=== PATIENT | male | born 2000 | race Hispanic/Latino ===

== ENCOUNTER 2024-09-18 17:30 | Inpatient (IN) | payer MEDICAID, OTHER ==
[~2024-09-18] VITALS: Ht 162.6 cm; Wt 75.7 kg
[2024-09-18 18:13] LABS: BASOPHILS % 0.3 % (0.0-1.0); EOSINOPHILS # (AUTO) 0.2 (0.0-0.4); EOSINOPHILS % 2.5 % (0.0-6.0); HEMATOCRIT 25.2 % (38.2-49.6); LYMPHOCYTES # (AUTO) 1.5 (1.0-3.2); LYMPHOCYTES % 21.4 % (18.0-39.1); MEAN CORPUSCULAR HEMOGLOBIN 30.1 pg (28-32); MEAN CORPUSCULAR HGB CONC 35.7 g/dL (31-35); MEAN CORPUSCULAR VOLUME 84.3 fL (81-99); MONOCYTES # (AUTO) 0.5 (0.2-0.8); MONOCYTES % 6.7 % (4.4-11.3); NEUTROPHILS # (AUTO) 4.7 (2.1-6.9); NEUTROPHILS % 68.8 % (38.7-80.0); PLATELET COUNT 200 x10e3/uL (140-360); RED BLOOD COUNT 2.99 x10e6/uL (4.3-5.7); RED CELL DISTRIBUTION WIDTH 12.4 % (11.7-14.4); WHITE BLOOD COUNT 6.88 x10e3/uL (4.8-10.8)
[2024-09-18 18:24] LABS: INR 1.09; PROTHROMBIN TIME 14.8 seconds (11.9-14.5)
[2024-09-18 18:25] LABS: PARTIAL THROMBOPLASTIN TIME 26.6 seconds (23.8-35.5)
[2024-09-18 18:30] LABS: CORONAVIRUS COVID-19 AG NEGATIVE (NEGATIVE); INFLUENZA A AG NEGATIVE (NEGATIVE); INFLUENZA B AG NEGATIVE (NEGATIVE)
[2024-09-18 18:34] LABS: ALBUMIN 3.8 g/dL (3.5-5.0); ALBUMIN/GLOBULIN RATIO 1.4 (0.8-2.0); ANION GAP 25.4 mmol/L (8-16); BILIRUBIN,TOTAL 0.6 mg/dL (0.2-1.2); CREATININE, SERUM 18.17 mg/dL (0.72-1.25); TOTAL PROTEIN 6.5 g/dL (6.5-8.1)
[2024-09-18 18:37] LABS: POTASSIUM 3.4 mmol/L (3.5-5.1)
[2024-09-18 18:38] LABS: CALCIUM 5.2 mg/dL (8.4-10.2)
[2024-09-18 18:40] LABS: TROPONIN I 0.068 ng/mL (0-0.300)
[2024-09-18] MEDS ORDERED: SODIUM CHLORIDE FLUSH 10 ML SYR INJ PRN (19:15)
[2024-09-18] MEDS ORDERED: ONDANSETRON HCL INJ 2MG/ML 2ML 2 MG/ML VIAL IV PRN (19:15)
[2024-09-18 19:25] LABS: CLARITY,URINE CLEAR (CLEAR); COLOR,URINE YELLOW (YELLOW)
[2024-09-18 19:26] LABS: BILIRUBIN,URINE NEGATIVE (NEGATIVE); GLUCOSE, URINE 1+ (NEGATIVE); KETONES,URINE NEGATIVE (NEGATIVE); LEUKOCYTE ESTERASE ,URINE NEGATIVE (NEGATIVE); NITRITE,URINE NEGATIVE (NEGATIVE); PH,URINE 6.5 (5 - 7); PROTEIN,URINE DIPSTICK >=300 (NEGATIVE); URINE UROBILINOGEN 0.2 mg/dL (0.2 - 1)
[2024-09-18 19:33] LABS: BACTERIA,URINE FEW /HPF; EPITHELIAL CELLS,URINE FEW /LPF; RBC,URINE 0-5 /HPF (0-5); WBC,URINE (MAN) 0-5 /HPF (0-5)
[2024-09-18 19:57] VITALS: TEMP 98.6
[2024-09-18] MEDS: METOPROLOL TARTRATE INJ 1 MG/ML VIAL IV STA (20:02)
[2024-09-18] MEDS: CALCIUM GLUC 1 G/50 ML NACL 50 ML IV ONE (20:02)
[2024-09-18 21:11] VITALS: PULSE 86; RESP 17
[2024-09-18] MEDS ORDERED: METOPROLOL TARTRATE INJ 1 MG/ML VIAL IV PRN (21:30)
[2024-09-18 21:52] VITALS: BP 147/94; PULSE 88; RESP 18; TEMP 98.1; O2SAT 97
[2024-09-18 22:00] VITALS: BP 147/94; PULSE 88; RESP 18; TEMP 98.1; O2SAT 97
[2024-09-18] MEDS ORDERED: LOSARTAN POTAS100 MG PO (23:04)
[2024-09-18] MEDS ORDERED: OMEPRAZOLE40 MG PO (23:04)
[2024-09-18] MEDS ORDERED: PREDNISONE5 MG PO (23:04)
[2024-09-18] MEDS ORDERED: BENLYSTA200 MG/1 M IM (23:04)
[2024-09-18] MEDS ORDERED: PLAQUENIL200 MG PO (23:04)
[2024-09-18] MEDS ORDERED: CARVEDILOL12.5 MG PO (23:04)
[2024-09-18] MEDS ORDERED: MYCOPHENOLATE250 MG PO (23:04)
[2024-09-19] VITALS (7 sets, daily range): BP systolic 126–168; BP diastolic 74–107; PULSE 80–91; RESP 16–19; TEMP 97.9–99; O2SAT 100
[2024-09-19 07:56] LABS: BASOPHILS % 0.5 % (0.0-1.0); EOSINOPHILS # (AUTO) 0.2 (0.0-0.4); EOSINOPHILS % 2.6 % (0.0-6.0); HEMATOCRIT 25.6 % (38.2-49.6); LYMPHOCYTES # (AUTO) 2.3 (1.0-3.2); LYMPHOCYTES % 36.3 % (18.0-39.1); MEAN CORPUSCULAR HEMOGLOBIN 29.8 pg (28-32); MEAN CORPUSCULAR HGB CONC 35.2 g/dL (31-35); MEAN CORPUSCULAR VOLUME 84.8 fL (81-99); MONOCYTES # (AUTO) 0.5 (0.2-0.8); MONOCYTES % 7.6 % (4.4-11.3); NEUTROPHILS # (AUTO) 3.3 (2.1-6.9); NEUTROPHILS % 52.8 % (38.7-80.0); PLATELET COUNT 194 x10e3/uL (140-360); RED BLOOD COUNT 3.02 x10e6/uL (4.3-5.7); RED CELL DISTRIBUTION WIDTH 12.3 % (11.7-14.4)
[2024-09-19 08:07] LABS: CALCIUM IONIZED 0.6 mmol/L (1.09-1.30)
[2024-09-19 08:30] LABS: ALBUMIN 3.5 g/dL (3.5-5.0); ALBUMIN/GLOBULIN RATIO 1.5 (0.8-2.0); ANION GAP 23.2 mmol/L (8-16); BILIRUBIN,TOTAL 0.6 mg/dL (0.2-1.2); CREATININE, SERUM 18.32 mg/dL (0.72-1.25); TOTAL PROTEIN 5.8 g/dL (6.5-8.1)
[2024-09-19 08:31] LABS: MAGNESIUM 1.7 MG/DL (1.3-2.1)
[2024-09-19 08:33] LABS: POTASSIUM 3.2 mmol/L (3.5-5.1)
[2024-09-19 08:36] LABS: CALCIUM 5.2 mg/dL (8.4-10.2)
[2024-09-19] MEDS: CALCIUM GLUC 1 G/50 ML NACL 50 ML IV SCH (10:42)
[2024-09-19] MEDS ORDERED: HEPARIN SOD (PORCINE) 1000 UNIT/ML SDV ONE (12:06)
[2024-09-19] MEDS ORDERED: MIDAZOLAM HCL 2 MG/2 ML VIAL ONE (12:06)
[2024-09-19] MEDS ORDERED: FENTANYL CITRATE/PF 100MCG/2 ML INJ ONE (12:07)
[2024-09-19] MEDS ORDERED: SODIUM CHLORIDE 0.9% 250ML 250 ML ONE (12:07)
[2024-09-19] MEDS ORDERED: LIDOCAINE HCL 1% 30ML-PF VIAL ONE (13:23)
[2024-09-19] MEDS ORDERED: SODIUM CHLORIDE 0.9% 500ML 500 ML ONE (13:23)
[2024-09-19] MEDS: MAGNESIUM SULFATE 2GM/50ML 50 ML IV ONE (14:02)
[2024-09-19] MEDS: SODIUM BICARBONATE 650 MG TAB PO SCH (14:02)
[2024-09-19] MEDS: CALCIUM CARBONATE 500 MG CHEWABLE TABS PO SCH (14:02)
[2024-09-19] MEDS ORDERED: HEPARIN SOD (PORCINE) 1000 UNIT/ML SDV IV PRN (17:15)
[2024-09-19] MEDS ORDERED: SODIUM CHLORIDE 0.9% 1000ML 1,000 ML IV PRN (17:15)
[2024-09-19] MEDS ORDERED: MANNITOL 25% 12.5GM/50 ML VIAL IV PRN (17:15)
[2024-09-19] MEDS: HYDRALAZINE HCL 20 MG/ML VIAL IV PRN (19:22)
[2024-09-19] MEDS: ACETAMINOPHEN 325 MG TAB PO PRN (19:24)
[2024-09-19] MEDS: CARVEDILOL 12.5 MG TAB PO SCH (21:41)
[2024-09-20] VITALS (10 sets, daily range): BP systolic 146–182; BP diastolic 93–122; PULSE 83–107; RESP 16–18; TEMP 98.2–99; O2SAT 98–100
[2024-09-20 05:35] LABS: HEPATITIS B CORE AB TOTAL NEGATIVE; HEPATITIS B SURFACE AB QUANT <3.5; HEPATITIS B SURFACE AG (P) NEGATIVE
[2024-09-20 06:30] LABS: ALBUMIN 3.5 g/dL (3.5-5.0); ALBUMIN/GLOBULIN RATIO 1.5 (0.8-2.0); ANION GAP 20.3 mmol/L (8-16); BILIRUBIN,TOTAL 0.6 mg/dL (0.2-1.2); CREATININE, SERUM 13.16 mg/dL (0.72-1.25); TOTAL PROTEIN 5.9 g/dL (6.5-8.1)
[2024-09-20 06:36] LABS: POTASSIUM 3.3 mmol/L (3.5-5.1)
[2024-09-20 06:38] LABS: CALCIUM 6.7 mg/dL (8.4-10.2)
[2024-09-20] MEDS: CALCITRIOL 0.25 MCG CAP PO SCH (08:43)
[2024-09-20] MEDS ORDERED: HEPARIN SOD (PORCINE) 1000 UNIT/ML SDV IV PRN (13:00)
[2024-09-20] MEDS ORDERED: SODIUM CHLORIDE 0.9% 1000ML 2,000 ML IV PRN (13:00)
[2024-09-20] MEDS ORDERED: MANNITOL 25% 12.5GM/50 ML VIAL IV PRN (13:00)
[2024-09-20] MEDS: AMLODIPINE BESYLATE 10 MG TAB PO SCH (13:59)
[2024-09-20] MEDS: CARVEDILOL 12.5 MG TAB PO SCH (17:50)
[2024-09-21 00:29] VITALS: BP 140/76; PULSE 105; RESP 17; TEMP 98.6; O2SAT 100
[2024-09-21 04:00] VITALS: BP 154/95; PULSE 100; RESP 20; TEMP 98.3; O2SAT 100
[2024-09-21] MEDS: PANTOPRAZOLE SODIUM 20 MG TABLET.DR PO SCH (08:51)
[2024-09-21] MEDS: HYDROXYCHLOROQUINE SULFATE 200 MG TAB PO SCH (08:53)
[2024-09-21 09:03] VITALS: BP 157/98; PULSE 93; RESP 20; TEMP 98.3; O2SAT 98
[2024-09-21 12:17] VITALS: BP_SYST 130; BP_SYST 157; BP_DIAS 83; BP_DIAS 98; PULSE 93; PULSE 95; RESP 20; TEMP 98.3; O2SAT 98; O2SAT 99
[2024-09-21 17:44] VITALS: BP 152/101; PULSE 107; RESP 20; TEMP 98.8; O2SAT 100
[2024-09-21 20:00] VITALS: BP_SYST 130; BP_SYST 141; BP_DIAS 77; PULSE 89; PULSE 95; RESP 18; TEMP 98.2; TEMP 98.4; O2SAT 99
[2024-09-22 00:15] VITALS: BP 145/78; PULSE 96; RESP 1; TEMP 98.5; O2SAT 99
[2024-09-22 04:12] VITALS: BP 137/90; PULSE 93; RESP 18; TEMP 98.2; O2SAT 98
[2024-09-22 04:50] LABS: BASOPHILS % 0.2 % (0.0-1.0); EOSINOPHILS # (AUTO) 0.2 (0.0-0.4); EOSINOPHILS % 3.8 % (0.0-6.0); HEMATOCRIT 24.4 % (38.2-49.6); HEMOGLOBIN 8.2 g/dL (14.0-18.0); LYMPHOCYTES # (AUTO) 2.2 (1.0-3.2); LYMPHOCYTES % 40.8 % (18.0-39.1); MEAN CORPUSCULAR HEMOGLOBIN 29.4 pg (28-32); MEAN CORPUSCULAR HGB CONC 33.6 g/dL (31-35); MEAN CORPUSCULAR VOLUME 87.5 fL (81-99); MONOCYTES # (AUTO) 0.5 (0.2-0.8); MONOCYTES % 8.8 % (4.4-11.3); NEUTROPHILS # (AUTO) 2.5 (2.1-6.9); NEUTROPHILS % 46.2 % (38.7-80.0); PLATELET COUNT 183 x10e3/uL (140-360); RED BLOOD COUNT 2.79 x10e6/uL (4.3-5.7); RED CELL DISTRIBUTION WIDTH 12.2 % (11.7-14.4); WHITE BLOOD COUNT 5.32 x10e3/uL (4.8-10.8)
[2024-09-22 05:17] LABS: ANION GAP 20.7 mmol/L (8-16); CALCIUM 7.1 mg/dL (8.4-10.2); CREATININE, SERUM 11.41 mg/dL (0.72-1.25); POTASSIUM 3.7 mmol/L (3.5-5.1)
[2024-09-22 06:25] LABS: ABG HCO3 20 mmol/L (22-26); ABG PCO2 38 mmHg (35-45); ABG PH 7.33 (7.35-7.45); ABG PO2 82 mmHg (80-105); ABG TCO2 21
[2024-09-22] MEDS ORDERED: LASIX40 MG PO (08:21)
[2024-09-22] MEDS ORDERED: PREDNISONE10 MG PO (08:24)
[2024-09-22 08:44] VITALS: BP 159/116; PULSE 94; RESP 20; TEMP 98.7; O2SAT 100
[2024-09-22 09:00] VITALS: BP 159/116; PULSE 94; RESP 20; TEMP 98.7; O2SAT 100
[2024-09-22 12:00] VITALS: BP 123/72; PULSE 87; RESP 18; TEMP 98.2; O2SAT 99
[2024-09-22] MEDS: LOSARTAN POTASSIUM 100 MG TAB PO SCH (18:15)
[2024-09-22 20:00] VITALS: BP 130/77; PULSE 89; RESP 18; TEMP 98.2; O2SAT 99
[2024-09-23 00:47] VITALS: BP 125/68; PULSE 90; RESP 16; TEMP 98.8; O2SAT 99
[2024-09-23 04:50] VITALS: BP 140/83; PULSE 92; RESP 16; TEMP 99.3; O2SAT 99
[2024-09-23 05:40] LABS: BASOPHILS % 0.3 % (0.0-1.0); EOSINOPHILS # (AUTO) 0.2 (0.0-0.4); EOSINOPHILS % 4.2 % (0.0-6.0); HEMOGLOBIN 8.4 g/dL (14.0-18.0); LYMPHOCYTES % 33.7 % (18.0-39.1); MEAN CORPUSCULAR HEMOGLOBIN 29.8 pg (28-32); MEAN CORPUSCULAR HGB CONC 33.6 g/dL (31-35); MEAN CORPUSCULAR VOLUME 88.7 fL (81-99); MONOCYTES # (AUTO) 0.5 (0.2-0.8); NEUTROPHILS % 52.6 % (38.7-80.0); PLATELET COUNT 190 x10e3/uL (140-360); RED BLOOD COUNT 2.82 x10e6/uL (4.3-5.7); RED CELL DISTRIBUTION WIDTH 12.2 % (11.7-14.4); WHITE BLOOD COUNT 5.78 x10e3/uL (4.8-10.8)
[2024-09-23 06:04] LABS: CALCIUM 7.8 mg/dL (8.4-10.2); CREATININE, SERUM 8.16 mg/dL (0.72-1.25)
[2024-09-23 07:59] VITALS: BP 144/93; PULSE 87; RESP 18; TEMP 98.7; O2SAT 99
[2024-09-23 08:52] LABS: CALCIUM 4.9 mg/dL (8.7-10.2)
[2024-09-23 11:47] VITALS: BP 123/79; PULSE 94; RESP 19; TEMP 98.7; O2SAT 99
[2024-09-23] MEDS ORDERED: Calcitriol PO (11:52)
[2024-09-23] MEDS ORDERED: NORVASC10 MG PO (11:52)
[2024-09-23] MEDS ORDERED: TUMS200 MG PO (11:53)
[2024-09-23] MEDS ORDERED: SODIUM BICARBO650 MG PO (11:53)
[2024-09-23] MEDS ORDERED: COREG12.5 MG PO (11:53)
[2024-09-23] MEDS ORDERED: COZAAR100 MG PO (11:53)
[2024-10-02] MEDS ORDERED: ULTRAM 50MG50 MG PO (09:58)
== END 2024-09-23 14:40 | disposition home or self-care (01) | DRG 674 ==
LOC: ER 18:14 → ERHOLD 19:05 → MED/SURG 21:37 → OBSVTOIN 09-20 13:34
PROVIDERS: ADMIT Internal Medicine; ATTEND Internal Medicine
PROC: 02H633Z Insertion of Infusion Device into Right Atrium, Percutaneous Approach (ICD-10-PCS; principal; 2024-09-19)
PROC: 5A1D70Z Performance of Urinary Filtration, Intermittent, Less than 6 Hours Per Day (ICD-10-PCS; principal; 2024-09-19)
PROC: 0JH63XZ Insertion of Tunneled Vascular Access Device into Chest Subcutaneous Tissue and Fascia, Percutaneous Approach (ICD-10-PCS; principal; 2024-09-19)
DX: I12.0 Hypertensive chronic kidney disease with stage 5 chronic kidney disease or end stage renal disease (principal); E87.20 Acidosis, unspecified; I16.0 Hypertensive urgency; N18.6 End stage renal disease; D63.1 Anemia in chronic kidney disease; E83.51 Hypocalcemia; Z99.2 Dependence on renal dialysis; E87.6 Hypokalemia; E83.42 Hypomagnesemia; R94.31 Abnormal electrocardiogram [ECG] [EKG]; M32.9 Systemic lupus erythematosus, unspecified; M19.90 Unspecified osteoarthritis, unspecified site; Z11.52 Encounter for screening for COVID-19; Z91.013 Allergy to seafood
CPT/HCPCS: 36415; 36558; 71045; 74470; 76770; 76937; 77001; 80048; 80053; 81001; 82550; 82805; 83519; 83690; 83735; 83880; 83970; 84100; 84484; 85025; 85610; 85730; 86704; 86706; 87340; 93005; 99152; 99284; C1769; C1892; G0378; J0360; J0690; J1644; J2003; J2150; J2250; J3475; J7030; J7040; J7050

== ENCOUNTER → 2024-10-02 | Day surgery (SDC) | payer MEDICAID ==
[~2024-10-02] MED LIST: ACETAMINOPHEN 1000 MG/100 ML 100 ML IV ONE; BENLYSTA200 MG/1 M IM; CARVEDILOL12.5 MG PO; COREG12.5 MG PO; COZAAR100 MG PO; Calcitriol PO; DEXAMETHASONE SOD PHOS INJ 4 MG/ML SDV ONE; FENTANYL CITRATE/PF 100MCG/2 ML INJ ONE; LASIX40 MG PO; LIDOCAINE HCL 2% LOCAL INJ 5 ML SDV VIAL INJ ONE; LOSARTAN POTAS100 MG PO; MIDAZOLAM HCL 2 MG/2 ML VIAL ONE; MYCOPHENOLATE250 MG PO; NORVASC10 MG PO; OMEPRAZOLE40 MG PO; ONDANSETRON HCL INJ 2MG/ML 2ML 2 MG/ML VIAL ONE; PLAQUENIL200 MG PO; PREDNISONE10 MG PO; PREDNISONE5 MG PO; PROPOFOL IV EMULSION 10 MG/ML 20 ML VIAL ONE; ROCURONIUM BROMIDE 1 ML IV ONE; SEVOFLURANE INHAL SOLN 250 ML PEN BTL ONE; SODIUM BICARBO650 MG PO; SUGAMMADEX SODIUM 200 MG/2 ML VIAL IV ONE; TUMS200 MG PO; ULTRAM 50MG50 MG PO
[2024-10-02] MEDS: SODIUM CHLORIDE 0.9% 500ML 500 ML ONE (08:36)
[2024-10-02] MEDS: CEFAZOLIN SODIUM 2 GM ONE (08:36)
[2024-10-02 08:51] LABS: BASOPHILS % 0.7 % (0.0-1.0); EOSINOPHILS # (AUTO) 0.1 (0.0-0.4); EOSINOPHILS % 2.4 % (0.0-6.0); HEMATOCRIT 27.5 % (38.2-49.6); HEMOGLOBIN 9.1 g/dL (14.0-18.0); LYMPHOCYTES % 33.8 % (18.0-39.1); MEAN CORPUSCULAR HGB CONC 33.1 g/dL (31-35); MEAN CORPUSCULAR VOLUME 87.6 fL (81-99); MONOCYTES # (AUTO) 0.6 (0.2-0.8); MONOCYTES % 10.6 % (4.4-11.3); NEUTROPHILS # (AUTO) 3.1 (2.1-6.9); NEUTROPHILS % 52.3 % (38.7-80.0); PLATELET COUNT 260 x10e3/uL (140-360); RED BLOOD COUNT 3.14 x10e6/uL (4.3-5.7); RED CELL DISTRIBUTION WIDTH 12.2 % (11.7-14.4); WHITE BLOOD COUNT 5.83 x10e3/uL (4.8-10.8)
[2024-10-02 09:09] LABS: ANION GAP 19.1 mmol/L (8-16); CALCIUM 8.2 mg/dL (8.4-10.2); CREATININE, SERUM 7.08 mg/dL (0.72-1.25); POTASSIUM 4.1 mmol/L (3.5-5.1)
[2024-10-02 09:11] LABS: INR 1.05; PROTHROMBIN TIME 14.3 seconds (11.9-14.5)
[2024-10-02 09:12] LABS: PARTIAL THROMBOPLASTIN TIME 31.5 seconds (23.8-35.5)
[2024-10-02 10:09] VITALS: TEMP 98.1
[2024-10-02] MEDS: HYDROCODONE/APAP 5MG-325MG TAB ONE (10:35)
[2024-10-02 11:25] VITALS: BP 109/69; PULSE 78; RESP 16; O2SAT 97
== END | disposition home or self-care (01) ==
LOC: OR 07:02
PROVIDERS: ATTEND Surgery
DX: I12.0 Hypertensive chronic kidney disease with stage 5 chronic kidney disease or end stage renal disease (principal); N18.6 End stage renal disease; D64.9 Anemia, unspecified; M32.9 Systemic lupus erythematosus, unspecified; Z91.013 Allergy to seafood; Z01.810 Encounter for preprocedural cardiovascular examination; Z99.2 Dependence on renal dialysis; Z79.899 Other long term (current) drug therapy
CPT/HCPCS: 36415; 49324; 80048; 85025; 85610; 85730; 93005; J0131; J1100; J2003; J2250; J2405; J2704; J3010; J7040

== ENCOUNTER 2024-11-18 19:52 | Emergency (ER) | payer MEDICAID ==
[~2024-11-18] VITALS: Ht 162.6 cm; Wt 72.6 kg
[~2024-11-18 19:52] MED LIST changes: -ACETAMINOPHEN 1000 MG/100 ML 100 ML IV ONE; -DEXAMETHASONE SOD PHOS INJ 4 MG/ML SDV ONE; -FENTANYL CITRATE/PF 100MCG/2 ML INJ ONE; -LIDOCAINE HCL 2% LOCAL INJ 5 ML SDV VIAL INJ ONE; -MIDAZOLAM HCL 2 MG/2 ML VIAL ONE; -ONDANSETRON HCL INJ 2MG/ML 2ML 2 MG/ML VIAL ONE; -PROPOFOL IV EMULSION 10 MG/ML 20 ML VIAL ONE; -ROCURONIUM BROMIDE 1 ML IV ONE; -SEVOFLURANE INHAL SOLN 250 ML PEN BTL ONE; -SUGAMMADEX SODIUM 200 MG/2 ML VIAL IV ONE
[2024-11-18 20:23] LABS: EOSINOPHILS # (AUTO) 0.2 (0.0-0.4); EOSINOPHILS % 4.2 % (0.0-6.0); HEMATOCRIT 31.7 % (38.2-49.6); LYMPHOCYTES # (AUTO) 1.8 (1.0-3.2); LYMPHOCYTES % 44.1 % (18.0-39.1); MEAN CORPUSCULAR HEMOGLOBIN 30.5 pg (28-32); MEAN CORPUSCULAR HGB CONC 31.5 g/dL (31-35); MEAN CORPUSCULAR VOLUME 96.6 fL (81-99); MONOCYTES # (AUTO) 0.3 (0.2-0.8); MONOCYTES % 7.1 % (4.4-11.3); NEUTROPHILS # (AUTO) 1.8 (2.1-6.9); NEUTROPHILS % 43.4 % (38.7-80.0); PLATELET COUNT 236 x10e3/uL (140-360); RED BLOOD COUNT 3.28 x10e6/uL (4.3-5.7); RED CELL DISTRIBUTION WIDTH 15.8 % (11.7-14.4); WHITE BLOOD COUNT 4.06 x10e3/uL (4.8-10.8)
[2024-11-18 20:41] LABS: ALBUMIN 3.6 g/dL (3.5-5.0); ALBUMIN/GLOBULIN RATIO 1.6 (0.8-2.0); BILIRUBIN,TOTAL 0.4 mg/dL (0.2-1.2); CALCIUM 7.4 mg/dL (8.4-10.2); CREATININE, SERUM 16.41 mg/dL (0.72-1.25); TOTAL PROTEIN 5.9 g/dL (6.5-8.1)
[2024-11-18] MEDS ORDERED: IOPAMIDOL 370 MG/ML 100 ML INFUS..BTL INJ ONE (20:47)
[2024-11-18 21:58] VITALS: PULSE 89; RESP 16; TEMP 98.2; O2SAT 97
== END 2024-11-18 21:59 | disposition home or self-care (01) ==
LOC: ER 19:57
DX: K62.5 Hemorrhage of anus and rectum (principal); I12.0 Hypertensive chronic kidney disease with stage 5 chronic kidney disease or end stage renal disease; N18.5 Chronic kidney disease, stage 5; Z99.2 Dependence on renal dialysis; M32.9 Systemic lupus erythematosus, unspecified
CPT/HCPCS: 36415; 74177; 80053; 85025; 99284; Q9967